=== PATIENT | male | born 1970 | race Two or more races ===

== ENCOUNTER 2020-04-19 23:21 | Inpatient (IN) | payer BC ==
[~2020-04-19] VITALS: Ht 185.4 cm; Wt 103.8 kg
[2020-04-20 01:00] LABS: BASOPHILS % (AUTO) 1 % (0-1); EOSINOPHILS % (AUTO) 11 % (1-7); LYMPHOCYTES % (AUTO) 12 % (22-44); MEAN CORPUSCULAR HEMOGLOBIN 29.1 pg (27.5-34.5); MEAN CORPUSCULAR HGB CONC 34.1 g/dL (33.2-36.2); MEAN PLATELET VOLUME 7.1 fL (7.4-10.4); MONOCYTES % (AUTO) 6 % (2-9); NEUTROPHILS % (AUTO) 70 % (42-75); PLATELET COUNT 290 x10^3/uL (130-400); RED BLOOD COUNT 4.62 x10^6/uL (4.38-5.82)
[2020-04-20] MEDS ORDERED: VANCOMYCIN PER PHARMACY MC PRN (01:00)
[2020-04-20 01:04] LABS: MD NO
[2020-04-20 01:06] LABS: ALBUMIN 2.6 g/dL (3.4-5.0); ANION GAP 6 mmol/L (5-15); CALCIUM 8.2 mg/dL (8.5-10.1); CHLORIDE 109 mmol/L (98-107); CREATININE 1.08 mg/dL (0.7-1.3)
[2020-04-20] MEDS ORDERED: FLUO20CA19 PO (01:24)
--- NOTE | 2020-04-20 01:29 | NUR ---
Report to NUHA Hein. Pt awaiting transport at this time.
[2020-04-20] MEDS ORDERED: morphine SULFATE 10 MG/ML, 1ML IVPush PRN (01:30)
[2020-04-20] MEDS ORDERED: ACETAMINOPHEN 325 MG TABLET PO PRN (01:30)
[2020-04-20] MEDS ORDERED: HYDROcodone/APAP 5/325 TABLET PO PRN (01:30)
[2020-04-20] MEDS ORDERED: DOCUSATE 100 MG CAPSULE PO PRN (01:30)
[2020-04-20] MEDS ORDERED: PIPERACILLIN/TAZO/PMX 3.375GM 50 ML ONE (01:30)
[2020-04-20] MEDS ORDERED: SODIUM CHLORIDE 0.9% 1,000 ML IV SCH (01:30)
[2020-04-20 01:45] VITALS: BP 135/79
[2020-04-20] MEDS: HEPARIN 5,000 UNITS/ML, 1ML SQ SCH ×3 (01:52→17:50)
[2020-04-20] MEDS ORDERED: PHARMACOKINETIC MONITORING MC PRN (02:00)
[2020-04-20] MEDS: PIPERACILLIN/TAZO/PMX 3.375GM 50 ML IV SCH ×4 (02:34→20:31)
[2020-04-20 06:44] VITALS: BP 127/77
[2020-04-20] MEDS: FLUOXETINE HCL 20 MG CAPSULE PO SCH (08:51)
[2020-04-20 13:48] VITALS: BP 127/75
[2020-04-20] MEDS: VANCOMYCIN 2,000 MG in SODIUM CHLORIDE 0.9% 500 ML IV SCH (14:06)
[2020-04-20 20:39] VITALS: BP 142/82
[2020-04-21] MEDS: HEPARIN 5,000 UNITS/ML, 1ML SQ SCH ×3 (01:19→17:36)
[2020-04-21] MEDS: VANCOMYCIN 2,000 MG in SODIUM CHLORIDE 0.9% 500 ML IV SCH ×2 (01:19→13:06)
[2020-04-21] MEDS: PIPERACILLIN/TAZO/PMX 3.375GM 50 ML IV SCH ×4 (02:01→22:28)
[2020-04-21 03:50] VITALS: BP 130/76
[2020-04-21 05:38] LABS: ANION GAP 4 mmol/L (5-15); CALCIUM 8.4 mg/dL (8.5-10.1); CHLORIDE 109 mmol/L (98-107); CREATININE 1.39 mg/dL (0.7-1.3)
[2020-04-21 06:52] VITALS: BP 138/87
[2020-04-21 07:24] LABS: BASOPHILS % (AUTO) 1 % (0-1); EOSINOPHILS % (AUTO) 12 % (1-7); LYMPHOCYTES % (AUTO) 15 % (22-44); MEAN CORPUSCULAR HEMOGLOBIN 29.2 pg (27.5-34.5); MEAN CORPUSCULAR HGB CONC 33.8 g/dL (33.2-36.2); MEAN PLATELET VOLUME 6.8 fL (7.4-10.4); MONOCYTES % (AUTO) 8 % (2-9); NEUTROPHILS % (AUTO) 64 % (42-75); PLATELET COUNT 370 x10^3/uL (130-400); RED BLOOD COUNT 4.74 x10^6/uL (4.38-5.82); RED CELL DISTRIBUTION WIDTH 12.9 % (9.4-14.8)
[2020-04-21 07:54] LABS: MD SCAN
[2020-04-21] MEDS: SODIUM CHLORIDE 0.9% 1,000 ML IV SCH ×2 (08:01→20:58)
[2020-04-21] MEDS: FLUOXETINE HCL 20 MG CAPSULE PO SCH (08:02)
[2020-04-21 14:21] VITALS: BP 112/69
[2020-04-21 19:52] VITALS: BP 147/83
[2020-04-22] MEDS: VANCOMYCIN 2,000 MG in SODIUM CHLORIDE 0.9% 500 ML IV SCH ×2 (01:13→12:39)
[2020-04-22] MEDS: HEPARIN 5,000 UNITS/ML, 1ML SQ SCH ×3 (01:13→16:47)
[2020-04-22 01:27] VITALS: BP 142/81
[2020-04-22] MEDS: PIPERACILLIN/TAZO/PMX 3.375GM 50 ML IV SCH ×4 (03:57→22:51)
[2020-04-22] MEDS: SODIUM CHLORIDE 0.9% 1,000 ML IV SCH ×2 (05:35→16:00)
[2020-04-22 06:54] LABS: BASOPHILS % (AUTO) 1 % (0-1); EOSINOPHILS % (AUTO) 8 % (1-7); LYMPHOCYTES % (AUTO) 16 % (22-44); MEAN CORPUSCULAR HGB CONC 33.5 g/dL (33.2-36.2); MEAN PLATELET VOLUME 6.8 fL (7.4-10.4); MONOCYTES % (AUTO) 6 % (2-9); NEUTROPHILS % (AUTO) 69 % (42-75); PLATELET COUNT 437 x10^3/uL (130-400); RED BLOOD COUNT 4.68 x10^6/uL (4.38-5.82); RED CELL DISTRIBUTION WIDTH 13.1 % (9.4-14.8)
[2020-04-22 07:01] LABS: ANION GAP 5 mmol/L (5-15); CALCIUM 8.5 mg/dL (8.5-10.1); CHLORIDE 109 mmol/L (98-107)
[2020-04-22 07:02] LABS: CREATININE 1.12 mg/dL (0.7-1.3)
[2020-04-22 07:09] LABS: MD NO
[2020-04-22 08:49] VITALS: BP 118/69
[2020-04-22] MEDS: FLUOXETINE HCL 20 MG CAPSULE PO SCH (10:00)
[2020-04-22 12:30] VITALS: BP 136/76
[2020-04-22 19:15] VITALS: BP 127/70
[2020-04-23] MEDS: VANCOMYCIN 2,000 MG in SODIUM CHLORIDE 0.9% 500 ML IV SCH ×2 (01:20→12:57)
[2020-04-23] MEDS: HEPARIN 5,000 UNITS/ML, 1ML SQ SCH ×3 (01:20→18:18)
[2020-04-23 01:32] VITALS: BP 131/77
[2020-04-23] MEDS: PIPERACILLIN/TAZO/PMX 3.375GM 50 ML IV SCH ×4 (04:13→22:00)
[2020-04-23] MEDS: SODIUM CHLORIDE 0.9% 1,000 ML IV SCH ×2 (06:15→16:56)
[2020-04-23] MEDS: FLUOXETINE HCL 20 MG CAPSULE PO SCH (08:35)
[2020-04-23 09:30] VITALS: BP 139/78
[2020-04-23 13:38] VITALS: BP 128/75
[2020-04-23 20:03] VITALS: BP 113/68
[2020-04-24] MEDS: VANCOMYCIN 2,000 MG in SODIUM CHLORIDE 0.9% 500 ML IV SCH (01:36)
[2020-04-24] MEDS: HEPARIN 5,000 UNITS/ML, 1ML SQ SCH ×2 (01:39→09:30)
[2020-04-24 03:08] VITALS: BP 115/66
[2020-04-24] MEDS: PIPERACILLIN/TAZO/PMX 3.375GM 50 ML IV SCH ×2 (06:00→10:07)
[2020-04-24 07:01] LABS: ANION GAP 4 mmol/L (5-15); CALCIUM 8.4 mg/dL (8.5-10.1); CHLORIDE 109 mmol/L (98-107); CREATININE 0.99 mg/dL (0.7-1.3)
[2020-04-24] MEDS: SODIUM CHLORIDE 0.9% 1,000 ML IV SCH (07:25)
[2020-04-24 07:57] VITALS: BP 128/72
[2020-04-24] MEDS ORDERED: DOXY100C26 PO (09:37)
[2020-04-24] MEDS: FLUOXETINE HCL 20 MG CAPSULE PO SCH (11:14)
== END 2020-04-24 11:55 | disposition home or self-care (01) | DRG 603 ==
LOC: ED 04-20 00:35 → EDIP 04-20 01:01 → 4NW 04-20 01:36 → DCLOUNGE 04-24 11:49
PROVIDERS: ADMIT Family Medicine; ATTEND Internal Medicine
DX: L03.116 Cellulitis of left lower limb (principal); N17.9 Acute kidney failure, unspecified; R65.10 Systemic inflammatory response syndrome (SIRS) of non-infectious origin without acute organ dysfunction; F41.9 Anxiety disorder, unspecified; Z79.899 Other long term (current) drug therapy
CPT/HCPCS: 36415; 80048; 80202; 82040; 83605; 84145; 85025; 93005; 99285; G0378; J1644; J2543; J3370; J7030; J7040